=== PATIENT | male | born 1965 | race American Indian/Alaskan Native ===

== ENCOUNTER 2021-09-29 12:24 | Emergency (ER) | payer SELFPAY ==
[2021-09-29 12:30] VITALS: BP 143/78
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
== END 2021-09-29 13:38 | disposition home or self-care (01) ==
LOC: ED 12:24
DX: M25.50 Pain in unspecified joint (principal); H92.03 Otalgia, bilateral; M79.18 Myalgia, other site; V49.49XA Driver injured in collision with other motor vehicles in traffic accident, initial encounter; Y93.89 Activity, other specified; Y92.89 Other specified places as the place of occurrence of the external cause; Y99.8 Other external cause status
CPT/HCPCS: 99281